=== PATIENT | female | born 1960 ===

== ENCOUNTER 2016-12-25 21:07 | Emergency (ER) | payer BC ==
[2016-12-25 21:15] VITALS: BP 121/69
[2016-12-25] MEDS ORDERED: Sulfamethox/Trimethoprim DS 800/160* TAB PO ONE (21:35)
--- NOTE | 2016-12-25 21:41 | UC ---
Complaint Female HPI - HPI Summary HPI Summary: This is an otherwise healthy 56 yo female visiting [place] town who presented with a one day h/o burning with urination. No fever, abd pain, n/v. No back pain. No vaginal symptoms. She reports her last UTI was 3-4 months ago - History Of Current Complaint Chief Complaint: UCGU Stated Complaint: UTI SYMPTOMS - Allergies/Home Medications Allergies/Adverse Reactions: Allergies Allergy/AdvReac Type Severity Reaction Status Date / Time No Known Allergies Allergy Verified 12/25/16 21:15 PMH/Surg Hx/FS Hx/Imm Hx Previously Healthy: Yes - Surgical History Surgical History: Yes Surgery Procedure, Year, and Place: meniscus repair 2014 - Family History Known Family History: Positive: None - Social History Alcohol Use: None Substance Use Type: None Smoking Status (MU): Never Smoked Tobacco Review of Systems Constitutional: Negative Skin: Negative Eyes: Negative ENT: Negative Respiratory: Negative Cardiovascular: Negative Gastrointestinal: Negative Genitourinary: Dysuria Motor: Negative Neurovascular: Negative Musculoskeletal: Negative Neurological: Negative Psychological: Negative All Other Systems Reviewed And Are Negative: Yes Physical Exam Triage Information Reviewed: Yes Appearance: Well-Appearing Vital Signs: Initial Vital Signs Temp 98 F 12/25/16 21:10 Pulse 52 12/25/16 21:10 Resp 16 12/25/16 21:10 BP 121/69 12/25/16 21:10 Pulse Ox 100 12/25/16 21:10 Vital Signs Reviewed: Yes Respiratory Exam: Normal Respiratory: Positive: Chest non-tender, Lungs clear. Negative: Crackles, Rhonchi, Stridor, Wheezing Cardiovascular: Positive: RRR, No Murmur Abdomen Description: Positive: Nontender. Negative: CVA Tenderness (R), CVA Tenderness (L) Diagnostics - Laboratory Diagnostic Studies Completed/Ordered: UA - +LE Complaint Female Dx - Course Course Of Treatment: This is an otherwise healthy 56 yo female who presents with a one day h/o dysuria with positive LE. Will treat empirically for UTI - Differential Dx/Diagnosis Differential Diagnosis/HQI/PQRI: Pelvic Inflammatory Disease, Sexually Transmitted Disease, Urinary Tract Infection Provider Diagnoses: 1. UTI Discharge - Discharge Plan Condition: Stable Disposition: HOME Prescriptions: Sulfamethox/Trimethoprim DS* [Bactrim DS 800/160 TAB*] 1 tab PO BID #6 tab Patient Education Materials: Urinary Tract Infection in Women (ED) Referrals: Non Staff,Doctor [Primary Care Provider] - Additional Instructions: Activity: As tolerated Instructions: 1. Take antibiotics as directed
== END 2016-12-25 21:40 | disposition home or self-care (01) ==
LOC: UCCORT 21:07
DX: N39.0 Urinary tract infection, site not specified (principal); Z87.440 Personal history of urinary (tract) infections
CPT/HCPCS: 81003; 87086; 99202; A9270-GY; G0463